=== PATIENT | female | born 1940 | race Caucasian/White ===

== ENCOUNTER → 2018-07-16 12:34 | Outpatient (CLI) | payer MEDICARE, OTHER, SELFPAY ==
[2018-07-16 13:51] LABS: Alanine Aminotransferase 34 IU/L (9-52); Albumin 3.9 g/dL (3.5-5.0); Albumin Globulin Ratio 1.4 (1.0-2.8); Alkaline Phosphatase 73 U/L (38-126); Aspartate Aminotransferase 23 IU/L (14-36); BUN Creatinine Ratio 21.3 (6-22); Bilirubin Total 0.6 mg/dL (0.2-1.3); Blood Urea Nitrogen 17 mg/dL (7-17); Calcium 9.7 mg/dL (8.4-10.2); Carbon Dioxide 28 mmol/L (22-32); Chloride 103 mmol/L (98-107); Cholesterol 174 mg/dL (140-199); Creatinine Urine Random 108.5 mg/dL; Estimated Glomerular Filt Rate > 60.0 mL/min (>60); Globulin 2.8 g/dL (1.7-4.1); Glucose 215 mg/dL (80-110); HDL Cholesterol 64 mg/dL (40-60); HEMOLYSIS < 15 (0-50); LDL Cholesterol Calculated 65 mg/dL (<100); Potassium 4.1 mmol/L (3.4-5.1); Sodium 141 mmol/L (137-145); Total Protein 6.7 g/dL (6.3-8.2); Triglycerides 224 mg/dL (35-150)
[2018-07-16 13:55] LABS: Microalbumi Creatinin Ratio Ur 8.2 ug/mg CR (<30); Microalbumin Urine Random 0.9 mg/dL (0-1.6)
== END ==
PROVIDERS: PCP Student in an Organized Health Care Education/Training Program; Visit Provider Student in an Organized Health Care Education/Training Program
DX: I10 Essential (primary) hypertension (principal); E78.00 Pure hypercholesterolemia, unspecified
CPT/HCPCS: 36415; 80053; 80061; 82043; 82570

== ENCOUNTER → 2018-07-30 12:32 | Outpatient (CLI) | payer MEDICARE, OTHER, SELFPAY | PROVIDERS: Family Provider Internal Medicine Hematology & Oncology; PCP Student in an Organized Health Care Education/Training Program; Visit Provider Surgery | DX: C50.911 Malignant neoplasm of unspecified site of right female breast (principal); Z78.0 Asymptomatic menopausal state | CPT/HCPCS: 77080 ==

== ENCOUNTER → 2018-08-22 13:10 | Outpatient (CLI) | payer MEDICARE, OTHER, SELFPAY ==
--- NOTE | 2018-08-22 13:12 | DI.MG.S_ITS ---
UNILATERAL RIGHT DIGITAL DIAGNOSTIC MAMMOGRAM 3D/2D SHORT-TERM FOLLOW-UP POST LUMPECTOMY: 08/22/2018 CLINICAL: Patient returns for a 6 month follow up of the right breast. Comparison is made to exams dated: 02/13/2018 localization, 01/10/2018 mammogram, 12/27/2017 mammogram, and 12/13/2017 mammogram - [facility]. The tissue of right breast is heterogeneously dense. This may lower the sensitivity of mammography. No significant masses, calcifications, or other findings are seen in the breast. IMPRESSION: NEGATIVE There is no mammographic evidence of malignancy. Return to screening mammogram in 6 months is recommended. The patient will be due for her bilateral mammogram at that time. This exam was interpreted at Station ID: [id number]. NOTE: For mammograms, a report in lay terms will be sent to the patient. Approximately 15% of breast malignancies will not be visualized mammographically. In the management of a palpable breast mass, a negative mammogram must not discourage biopsy of a clinically suspicious lesion. Electronically Signed By: Mandi Fernando M.D. lk/:08/22/2018 13:45:45 copy to: KARAN MENARD letter sent: Normal Exam ACR BI-RADS Category 1: Negative [id number]
== END ==
PROVIDERS: Family Provider Internal Medicine Hematology & Oncology; PCP Student in an Organized Health Care Education/Training Program; Visit Provider Surgery
DX: R92.8 Other abnormal and inconclusive findings on diagnostic imaging of breast (principal); C50.919 Malignant neoplasm of unspecified site of unspecified female breast
CPT/HCPCS: 77065; G0279

== ENCOUNTER 2018-08-24 14:00 | Oncology outpatient (ONC) | payer MEDICARE, OTHER, SELFPAY ==
[2018-07-02 15:50] VITALS: BP 146/76; PULSE 74; RESP 17; TEMP 36.7; O2SAT 98
--- NOTE | 2018-07-02 16:18 | ONC.PN ---
PN -Subjective Interval history: INTERIM EVENTS She presents here today for scheduled follow-up visit. She overall has tolerated the aromatase inhibitor Arimidex relatively well. Patient reported hot flashes, but it is mild and tolerable. Patient reports no new onset musculoskeletal pain. Patient also denies any osteoarthritic pain. Patient admitted to not taking calcium and vitamin-D. Patient has already scheduled follow-up mammogram on July 30, 2018. ONCOLOGICAL HISTORY This is a 78-year-old female presented for her usual annual mammogram in early 2017 and was found to have an abnormality in the upper outer quadrant of the right breast. On January 10, 2018, patient underwent right breast mass needle core biopsies. 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 On February 13 2018, Dr. Bone partner performed right breast lumpectomy at sentinel lymph node biopsy. 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 Eleven lymph nodes were removed and 1 of them was positive for micrometastasis. Final pathology staging was pT1c pN1mi (AJCC 8). Post operatively, patient was evaluated by Dr. Arreguin. The role of Oncotype DX was discussed with the patient. However patient was not interested in proceeding to adjuvant chemotherapy; therefore Oncotype DX was not pursued. In addition patient also refused adjuvant radiotherapy. Since February of 2018, patient has been on Arimidex inhibitor Arimidex 1 mg once a day. - Patient Self-Reported Symptoms SR Constitution: Night Sweats SR ears, nose, mouth, throat issues: Ears ringing SR Musculoskeletal issues: Bone pain (fell after tripped while moving furniture. right lower back pain.) SR Endocrine issues: Hot flashes - Additional ROS All systems PM: reviewed and no additional remarkable complaints except as stated Home Medications and Allergies Home Medications Medication Instructions Recorded Confirmed Type atorvastatin [Lipitor] 20 mg PO QDAY #0 02/02/18 07/02/18 History lisinopril 10 mg PO QDAY #0 02/02/18 07/02/18 History metformin [Glucophage XR] 1,125 mg PO SEE INSTRUCTIONS #0 02/02/18 05/31/18 History anastrozole 1 mg PO DAILY 07/02/18 07/02/18 History lutein 20 mg PO DAILY 07/02/18 07/02/18 History vitamin P37-uaorb acid 1 tab PO DAILY 07/02/18 07/02/18 History Allergies Allergy/AdvReac Type Severity Reaction Status Date / Time gabapentin [GABAPENTIN] Allergy Severe hives Verified 07/02/18 15:53 Penicillins [PENICILLINS] Allergy Severe throat Verified 07/02/18 15:53 sweelling, rash prednisone [PREDNISONE] Allergy Severe heart Verified 07/02/18 15:53 racing, chest pain erythromycin base Allergy Unknown throat Verified 07/02/18 15:53 [ERYTHROMYCIN BASE] swelling, rash Sulfa (Sulfonamide Allergy Unknown throat Verified 07/02/18 15:53 Antibiotics) swelling, [SULFA (SULFONAMIDE rash ANTIBIOTICS)] Exam Vital signs: Last Vital Signs Temp 98.0 F 07/02/18 15:50 Pulse 74 07/02/18 15:50 Resp 17 07/02/18 15:50 BP 146/76 H 07/02/18 15:50 Pulse Ox 98 07/02/18 15:50 - Constitutional positive no acute distress, positive obese, positive cooperative - Routine HEENT Exam Head: Present: normocephalic, atraumatic Eye: Present: EOMI, PERRL, normal accommodation. Absent: conjunctival icterus ENT: Present: mucous membranes moist - Routine Neck Exam Present: supple, full ROM, trachea midline. Absent: JVD, carotid bruit, lymphadenopathy, thyromegaly, swelling - Detailed Breast Exam left Inspection: Absent: rash, erythema, swelling, peau d'orange, nipple discharge, area of retraction, discharge Palpation: Present: tenderness. Absent: mass, induration right Inspection: Absent: rash, erythema, swelling, peau d'orange, nipple discharge, area of retraction, discharge Palpation: Present: tenderness, induration. Absent: mass Comments: underneath the surgical wound. - Routine Respiratory Exam Present: Clear to auscultation bilaterally. Absent: wheezes - Routine Cardiovascular Exam Present: RRR, S1, S2. Absent: murmur, gallop, rubs - Routine Abdominal Exam Present: soft, normoactive bowel sounds. Absent: tenderness, distended, organomegaly, mass, hernia - Routine Extremities Exam Absent: cyanosis, edema, joint swelling - Routine Neurological Exam Present: alert, oriented X3, CN II-XII intact, normal tone, normal speech. Absent: sensory deficit, motor deficit - Routine Psychiatric Exam Present: normal affect, normal thought process, cooperative, good insight, good judgment - Additional findings Additional findings: All physical examinations were chaperoned. Results - Labs No results from today to review. Assessment and Plan (1) Breast cancer in female Current visit: Yes Status: Chronic I discussed the role of aromatase inhibitor in hormone receptor positive breast cancer. However it does carry a risk of worsening osteoporosis with increased risk for fracture. I would recommend that she take calcium and vitamin-D. The elementary calcium should be at least 1169-8611 mg per day with concurrent intake of vitamin D 800 to a 1000 units. PLAN: 1. Continue Anastrozole 1 mg daily 2. Calcium 1200 mg daily together with Vitamin D 800 units daily 3. DEXA scan 4. Mamogram as scheduled (07/30/2018) 5. RTC after mammogram
--- NOTE | 2018-08-24 13:52 | ONC.PN ---
PN -Subjective Interval history: Chief Complaint 78 year old with right breast cancer now on treatment with Arimidex here for scheduled follow up visit. Oncological History This is a 78-year-old female presented for her usual annual mammogram in early 2017 and was found to have an abnormality in the upper outer quadrant of the right breast. On January 10, 2018, patient underwent right breast mass needle core biopsies. The biopsy from 10 o'clock lesion showed invasive ductal carcinoma, [place] grade 2/3, with greatest linear extent of 3 mm, without ductal carcinoma in-situ, without microcalcification, without lymphovascular invasion, ER pos (95% average intensity staining), CA neg, and HER2 neg (1+); while the biopsy from the 9 o'clock location showed dense fibrous breast tissue with fibroadenomatoid changes and negative for in-situ or invasive carcinoma. On February 13 2018, Dr. Mc Owens performed right breast lumpectomy and sentinel lymph node biopsy. 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 Eleven lymph nodes were removed and 1 of them was positive for micrometastasis. Final pathology staging was pT1c pN1mi (AJCC 8). Post operatively, patient was evaluated by Dr. Arreguin. The role of Oncotype Dx was discussed with the patient. However patient was not interested in proceeding to adjuvant chemotherapy; therefore Oncotype DX was not pursued. In addition patient also refused adjuvant radiotherapy. Since February of 2018, patient has been on aromatase inhibitor Arimidex 1 mg once a day. Interim Events The patient now is taking Arimidex 1 mg once a day. Patient tolerated the medications extremely well. However patient said she is having problems tolerating vitamin-D. At some point, patient was having urinary tract infection-like symptoms. She was evaluated by her primary care provider, no urinary tract infection was identified based on the lab results according to patient. Patient herself then decided to stop vitamin-D. After she stopped vitamin-D, the symptoms resolved. Later she tried to use the vitamin-D again, and the urinary tract infection-like symptoms recurred. Therefore she decided that she will permanently stop vitamin-D. Now she is taking calcium 1 pill twice a day. I believe the calcium also contains low-dose vitamin D. Patient underwent mammogram on August 22, 2018. The diagnostic mammogram showed no abnormal findings. And returning to annual screening mammogram was recommended in 6 months. In addition patient also underwent a DEXA scan on July 30, 2018. The lowest T-score was found at the right femoral neck, and it was -0.8. The patient was considered normal according to the World Health Organization. - Patient Self-Reported Symptoms SR Constitution: Night Sweats SR ears, nose, mouth, throat issues: Ears ringing SR Musculoskeletal issues: Bone pain (fell after tripped while moving furniture. right lower back pain.) SR Endocrine issues: Hot flashes - Additional ROS All systems PM: reviewed and no additional remarkable complaints except as stated Home Medications and Allergies Home Medications Medication Instructions Recorded Confirmed Type atorvastatin [Lipitor] 20 mg PO QDAY #0 02/02/18 08/24/18 History lisinopril 10 mg PO QDAY #0 02/02/18 08/24/18 History metformin [Glucophage XR] 1,125 mg PO SEE INSTRUCTIONS #0 02/02/18 08/24/18 History anastrozole 1 mg PO DAILY 07/02/18 08/24/18 History lutein 20 mg PO DAILY 07/02/18 08/24/18 History vitamin F47-vhcrs acid 1 tab PO DAILY 07/02/18 08/24/18 History calcium carbonate [Calcium 600] 600 mg PO BID 08/24/18 08/24/18 History Allergies Allergy/AdvReac Type Severity Reaction Status Date / Time gabapentin [GABAPENTIN] Allergy Severe hives Verified 07/02/18 15:53 Penicillins [PENICILLINS] Allergy Severe throat Verified 07/02/18 15:53 sweelling, rash prednisone [PREDNISONE] Allergy Severe heart Verified 07/02/18 15:53 racing, chest pain erythromycin base Allergy Unknown throat Verified 07/02/18 15:53 [ERYTHROMYCIN BASE] swelling, rash Sulfa (Sulfonamide Allergy Unknown throat Verified 07/02/18 15:53 Antibiotics) swelling, [SULFA (SULFONAMIDE rash ANTIBIOTICS)] Exam Vital signs: Temp 98.0 F 07/02/18 15:50 Pulse 74 07/02/18 15:50 Resp 17 07/02/18 15:50 BP 146/76 H 07/02/18 15:50 Pulse Ox 98 07/02/18 15:50 ECOG 1 Narrative: Constitutional: positive no acute distress, positive obese, positive cooperative HEENT: Head: Present: normocephalic, atraumatic, Eye: Present: EOMI, PERRL, normal accommodation. Absent: conjunctival icterus ENT: Present: mucous membranes moist Neck Present: supple, full ROM, trachea midline. Absent: JVD, carotid bruit, lymphadenopathy, thyromegaly, swelling Breast Deferred. Respiratory: Present: Clear to auscultation bilaterally. Absent: wheezes Cardiovascular: Present: RRR, S1, S2. Absent: murmur, gallop, rubs Abdominal: Present: soft, normoactive bowel sounds. Absent: tenderness, distended, organomegaly, mass, hernia Extremities: Absent: cyanosis, edema, joint swelling Neurological: Present: alert, oriented X3, CN II-XII intact, normal tone, normal speech. Absent: sensory deficit, motor deficit Psychiatric: Present: normal affect, normal thought process, cooperative, good insight, good judgment Results - Labs Mammogram and DEXA were reviewed with patient and her Assessment and Plan (1) Breast cancer in female I reviewed the mammogram as well as the DEXA scan results with the patient. The mammogram is without any abnormal findings. And the DEXA scan is normal. Plan: 1. Continue Anastrozole 1 mg daily 2. Calcium 1200 mg daily together with Vitamin D 800 units daily 3. Bilateral screening mammogram in 6 months 4. RTC after mammogram
[2018-08-24 14:31] VITALS: BP 145/74; PULSE 81; RESP 17; TEMP 36.6; O2SAT 98
== END 2018-08-25 12:00 ==
PROVIDERS: Family Provider Surgery; PCP Student in an Organized Health Care Education/Training Program; Visit Provider Internal Medicine Hematology & Oncology
DX: C50.411 Malignant neoplasm of upper-outer quadrant of right female breast (principal); Z17.0 Estrogen receptor positive status [ER+]; Z79.811 Long term (current) use of aromatase inhibitors
CPT/HCPCS: 99214

== ENCOUNTER → 2018-10-09 09:02 | Outpatient (CLI) | payer MEDICARE, OTHER, SELFPAY ==
[2018-10-09 09:52] LABS: Add Manual Diff / Slide Review NO; Basophils Percent Auto 0.7 % (0-2); Eosinophils Percent Auto 1.4 % (2-4); Hematocrit 42.8 % (36-46); Hemoglobin 14.2 g/dL (12.0-16.0); Mean Corpuscular HGB Conc 33.1 % (30-36); Mean Corpuscular Hemoglobin 30.8 PG (26-34); Mean Corpuscular Volume 92.9 fL (80-100); Monocytes Percent Auto 5.2 % (3-14); Neutrophils Absolute Auto 4800 /uL (1500-7000); Neutrophils Percent Auto 70.7 % (50-75); Platelet Count 208 X10^3/uL (150-400); Red Blood Cell Count 4.61 X10^6/uL (4.0-5.2); Red Cell Distribution Width 13.2 % (11.6-14.8); White Blood Cell Count 6.7 X10^3/uL (4.5-11.0)
[2018-10-09 10:38] LABS: Creatinine Urine Random 65.7 mg/dL
[2018-10-09 10:43] LABS: Microalbumi Creatinin Ratio Ur 9.1 ug/mg CR (<30); Microalbumin Urine Random 0.6 mg/dL (0-1.6)
[2018-10-09 11:37] LABS: BUN Creatinine Ratio 21.3 (6-22); Blood Urea Nitrogen 17 mg/dL (7-17); Carbon Dioxide 24 mmol/L (22-32); Chloride 104 mmol/L (98-107); Cholesterol 181 mg/dL (140-199); Estimated Glomerular Filt Rate > 60.0 mL/min (>60); Glucose 112 mg/dL (80-110); HDL Cholesterol 65 mg/dL (40-60); LDL Cholesterol Calculated 82 mg/dL (<100); Sodium 142 mmol/L (137-145); Triglycerides 171 mg/dL (35-150)
[2018-10-09 11:48] LABS: HEMOLYSIS 130 (0-50); Potassium 5.4 mmol/L (3.4-5.1)
== END ==
PROVIDERS: PCP Student in an Organized Health Care Education/Training Program; Visit Provider Student in an Organized Health Care Education/Training Program
DX: I10 Essential (primary) hypertension (principal); E11.40 Type 2 diabetes mellitus with diabetic neuropathy, unspecified; E78.00 Pure hypercholesterolemia, unspecified
CPT/HCPCS: 36415; 80048; 80061; 82043; 82570; 83036; 85025

== ENCOUNTER → 2018-10-15 11:30 | Outpatient (CLI) | payer MEDICARE, OTHER, SELFPAY ==
--- NOTE | 2018-10-15 | DI.RAD.S_ITS ---
PROCEDURE: XR CHEST 2V INDICATIONS: COUGH TECHNIQUE: 2 views of the chest were acquired. COMPARISON: None. FINDINGS: Surgical changes and devices: Right breast clips are seen. Lungs and pleura: Poorly defined opacities are seen involving the lung bases, right worse than left. No pneumothorax or pleural effusions are seen. Mediastinum: Mediastinal contours are normal. Heart size is normal. Bones and chest wall: No suspicious bony abnormalities. Age-appropriate bony degenerative changes are seen. Soft tissues appear unremarkable. IMPRESSION: Poorly defined opacities are seen at the lung bases. Differential diagnosis includes infiltrate and atelectasis. As clinically appropriate, a short-term followup chest series (with PA and lateral views) performed in deep inspiration is suggested for further evaluation. Dictated by: Jarad Link M.D. on 10/15/2018 at 11:06 Approved by: Jarad Link M.D. on 10/15/2018 at 11:07
== END ==
PROVIDERS: Family Provider Surgery; PCP Student in an Organized Health Care Education/Training Program; Visit Provider Student in an Organized Health Care Education/Training Program
DX: R05 Cough (principal)
CPT/HCPCS: 71046

== ENCOUNTER → 2019-01-11 09:31 | Outpatient (CLI) | payer MEDICARE, OTHER, SELFPAY ==
--- NOTE | 2019-02-25 09:12 | ONC.SCHED ---
Tawana said [facility] Radiologist said her Mammo was normal, She doesnt want to schedule a follow up at this time
== END ==
PROVIDERS: PCP Student in an Organized Health Care Education/Training Program; Visit Provider Student in an Organized Health Care Education/Training Program
DX: E11.40 Type 2 diabetes mellitus with diabetic neuropathy, unspecified (principal)
CPT/HCPCS: 36415; 83036

== ENCOUNTER → 2019-02-19 10:53 | Outpatient (CLI) | payer MEDICARE, OTHER, SELFPAY ==
--- NOTE | 2019-02-19 10:55 | DI.MG.S_ITS ---
BILATERAL DIGITAL SCREENING MAMMOGRAM 3D/2D WITH CAD POST LUMPECTOMY: 02/19/2019 CLINICAL: Routine screening. Personal history of right breast cancer. Comparison is made to exams dated: 08/22/2018 mammogram, 01/10/2018 mammogram, 12/27/2017 mammogram, 12/13/2017 mammogram, and 10/31/2016 mammogram - [facility]. The tissue of both breasts is heterogeneously dense. This may lower the sensitivity of mammography. Current study was also evaluated with a Computer Aided Detection (CAD) system. There are benign post operative findings in the right breast. There also are benign calcifications in both breasts. No significant masses, calcifications, or other findings are seen in either breast. There has been no significant interval change. IMPRESSION: There is no mammographic evidence of malignancy. A 1 year screening mammogram is recommended. This exam was interpreted at Station ID: [id number]. NOTE: For mammograms, a report in lay terms will be sent to the patient. Approximately 15% of breast malignancies will not be visualized mammographically. In the management of a palpable breast mass, a negative mammogram must not discourage biopsy of a clinically suspicious lesion. Electronically Signed By: Godwin reid/valerio:02/19/2019 13:15:15 copy to: KARAN MENARD copy to: Clari Romero letter sent: Normal Exam ACR BI-RADS Category 2: Benign Finding(s) [id number]
== END ==
PROVIDERS: PCP Student in an Organized Health Care Education/Training Program; Visit Provider Surgery
DX: Z12.31 Encounter for screening mammogram for malignant neoplasm of breast (principal); Z85.3 Personal history of malignant neoplasm of breast
CPT/HCPCS: 77063; 77067

== ENCOUNTER → 2019-07-29 14:16 | Outpatient (CLI) | payer MEDICARE, OTHER, SELFPAY ==
--- NOTE | 2019-07-29 | DI.RAD.S_ITS ---
PROCEDURE: XR WRIST LT MIN 3V INDICATIONS: LEFT WRIST PAIN TECHNIQUE: 4 views of the wrist were acquired. COMPARISON: None. FINDINGS: Bones: No fractures or dislocations. No suspicious bony lesions. First CMC and triscaphe joint degeneration. Chondrocalcinosis projects in the ulnocarpal compartment IMPRESSION: Mild degenerative changes. If the patient's pain or other symptoms persist, consider further evaluation with MRI Dictated by: Brayan Polanco M.D. on 07/29/2019 at 16:52 Approved by: Brayan Polanco M.D. on 07/29/2019 at 16:57
== END ==
PROVIDERS: PCP Student in an Organized Health Care Education/Training Program; Visit Provider Student in an Organized Health Care Education/Training Program
DX: M25.532 Pain in left wrist (principal); M18.12 Unilateral primary osteoarthritis of first carpometacarpal joint, left hand
CPT/HCPCS: 73110

== ENCOUNTER → 2019-10-09 08:51 | Outpatient (CLI) | payer MEDICARE, OTHER, SELFPAY ==
[2019-10-09 10:23] LABS: Blood Urea Nitrogen 21 mg/dL (7-17); Calcium 10.1 mg/dL (8.4-10.2); Carbon Dioxide 28 mmol/L (22-32); Chloride 103 mmol/L (98-107); Estimated Glomerular Filt Rate 53.8 mL/min (>60); Glucose 155 mg/dL (80-110); HEMOLYSIS < 15 (0-50); Potassium 4.1 mmol/L (3.4-5.1); Sodium 141 mmol/L (137-145)
[2019-10-09 10:49] LABS: Hemoglobin A1C% w Est Avg Glu 7.6 % (4.0-6.0)
[2019-10-09 12:23] LABS: Creatinine Urine Random 72.5 mg/dL
[2019-10-09 12:29] LABS: Microalbumi Creatinin Ratio Ur 8.2 ug/mg CR (<30); Microalbumin Urine Random 0.6 mg/dL (0-1.6)
== END ==
PROVIDERS: Family Provider Internal Medicine Hematology & Oncology; PCP Student in an Organized Health Care Education/Training Program; Visit Provider Student in an Organized Health Care Education/Training Program
DX: E11.40 Type 2 diabetes mellitus with diabetic neuropathy, unspecified (principal); I10 Essential (primary) hypertension; E78.00 Pure hypercholesterolemia, unspecified
CPT/HCPCS: 36415; 80048; 82043; 82570; 83036

== ENCOUNTER → 2019-10-21 12:52 | Outpatient (CLI) | payer MEDICARE, OTHER, SELFPAY ==
--- NOTE | 2019-10-21 12:55 | DI.US.S_ITS ---
LIMITED ULTRASOUND OF RIGHT BREAST: 10/21/2019 CLINICAL: Palpable right breast lump. Focal right breast pain. Comparison is made to exams dated: 10/21/2019 mammogram, 02/19/2019 mammogram, 08/22/2018 mammogram, 01/10/2018 mammogram, 12/27/2017 mammogram, and 12/27/2017 [facility]. Color flow ultrasound of the right breast upper outer quadrant was performed. Munguia scale images of the real-time examination were reviewed. Targeted ultrasound of the superior lateral left breast at the site of patient's reported focal palpable lump (near the 9:00 position) and focal pain (near the 10:00 position) demonstrates postsurgical changes and scarring consistent with reported prior lumpectomy, with no significant vascularity on Doppler ultrasound or well-formed distinct focal masses to suggest recurrent malignancy at this time. No other masses or abnormalities are identified by ultrasound within the superior lateral right breast. IMPRESSION: BENIGN 1) Targeted ultrasound of the superior lateral left breast at the site of patient's reported focal palpable lump and focal pain demonstrates postsurgical changes and scarring consistent with reported prior lumpectomy, with no ultrasound findings to suggest a recurrent malignancy at this time. No other masses or abnormalities are identified by ultrasound within the superior lateral right breast. Recommend clinical follow-up for further evaluation and management of the patient's reported symptoms. Consider breast MRI if there is continued clinical suspicion for recurrent or residual malignancy. 2) There is no sonographic evidence of malignancy in the imaged areas of the superior lateral right breast. Recommend to post-lumpectomy follow-up mammogram schedule with next bilateral mammogram due in January 2020. The patient is advised to monitor her breasts and to return sooner for re-evaluation should she feel anything grow or change. This exam was interpreted at Station ID: [id number]. Electronically Signed By: Heriberto Martínez M.D. ecl/:10/21/2019 14:47:00 letter sent: Clinical Evaluation Ultrasound BI-RADS: 2 Benign
--- NOTE | 2019-10-21 12:55 | DI.MG.S_ITS ---
UNILATERAL RIGHT DIGITAL DIAGNOSTIC MAMMOGRAM 3D/2D POST LUMPECTOMY: 10/21/2019 CLINICAL: Focal right breast pain and focal right breast palpable lump. Comparison is made to exams dated: 02/19/2019 mammogram, 08/22/2018 mammogram, 02/13/2018 localization, 01/10/2018 mammogram, 12/13/2017 mammogram, and 10/31/2016 mammogram - [facility]. The tissue of right breast is heterogeneously dense. This may lower the sensitivity of mammography. There is a triangular marker overlying the skin of the superior lateral right breast at the site of the patient's reported palpable lump. There is also a square marker overlying the skin of the superior lateral right breast at the site of the patient's reported focal pain. Both markers are adjacent the area of parenchymal scarring of the superior lateral right breast from middle to posterior depth from the patient's prior lumpectomy site. There is an overlying linear scar marker. There are underlying surgical clips. There are franklin-like secretory calcifications and peripher calcifications suggestive of fat necrosis within the right breast. IMPRESSION: INCOMPLETE: NEEDS ADDITIONAL IMAGING EVALUATION Patient's indicated area of focal pain and area of palpable lump within the the superior lateral right breast are both adjacent the area of parenchymal scarring from patient's prior lumpectomy. Targeted diagnostic ultrasound recommended for further evaluation, which will be performed immediately following this exam. This exam was interpreted at Station ID: [id number]. NOTE: For mammograms, a report in lay terms will be sent to the patient. Approximately 15% of breast malignancies will not be visualized mammographically. In the management of a palpable breast mass, a negative mammogram must not discourage biopsy of a clinically suspicious lesion. Electronically Signed By: Heriberto Martínez M.D. ecl/:10/21/2019 14:16:38 ACR BI-RADS Category 0: Incomplete [id number]
== END ==
PROVIDERS: Family Provider Internal Medicine Hematology & Oncology; PCP Student in an Organized Health Care Education/Training Program; Visit Provider Internal Medicine Hematology & Oncology
DX: R92.8 Other abnormal and inconclusive findings on diagnostic imaging of breast (principal); N63.10 Unspecified lump in the right breast, unspecified quadrant; N64.4 Mastodynia; L90.5 Scar conditions and fibrosis of skin; Z85.3 Personal history of malignant neoplasm of breast
CPT/HCPCS: 76642; 77065; G0279

== ENCOUNTER → 2020-04-23 11:08 | Outpatient (CLI) | payer MEDICARE, OTHER, SELFPAY ==
[2020-04-23 12:03] LABS: Bacteria Urine None Seen; RBC Urine None Seen (0-5/HPF); WBC Urine None Seen (0-5/HPF)
[2020-04-23 12:42] LABS: Appearance Urine UA CLEAR; Bilirubin Urine UA NEGATIVE (NEGATIVE); Color Urine UA YELLOW; Glucose Urine UA 1+ g/dL (Negative); Ketones Urine UA NEGATIVE (NEGATIVE); Leukocyte Esterase Urine UA NEGATIVE (NEGATIVE); Nitrite Urine UA NEGATIVE (Negative); Occult Blood Urine UA NEGATIVE (Negative); Protein Urine UA NEGATIVE (Negative); Specific Gravity Urine UA 1.025 (1.000-1.035); Urobilinogen Urine UA 0.2 E.U./dL (0.2)
[2020-04-23 13:09] LABS: Calcium Oxalate Crystals Urine Many
== END ==
PROVIDERS: Family Provider Internal Medicine Hematology & Oncology; PCP Student in an Organized Health Care Education/Training Program; Referring Provider Student in an Organized Health Care Education/Training Program; Visit Provider Student in an Organized Health Care Education/Training Program
DX: N39.0 Urinary tract infection, site not specified (principal)
CPT/HCPCS: 81001; 87086

== ENCOUNTER 2020-04-26 05:24 | Emergency (ER) | payer MEDICARE, OTHER, SELFPAY ==
[2020-04-26 05:44] VITALS: BP 254/114; PULSE 94; RESP 16; TEMP 36.4; O2SAT 98
--- NOTE | 2020-04-26 06:01 | ED_ITS ---
HPI - Skin/Abscess/Foreign Bdy General Chief complaint: Skin/Abscess/Foreign Body Stated complaint: right side pain, has shingles Time Seen by Provider: 04/26/20 05:53 Source: patient Mode of arrival: Ambulatory Limitations: no limitations History of Present Illness HPI narrative: 79-year-old female. Diagnosed with a shingles approximately 1 week ago to her right upper leg. She has finished the course of antivirals. Was not given any pain medication. She states that for the past week she has had quite a bit of pain in the area where the rash has been. She does feel that the rash has been improving with the pain has not. She states it is very itchy. Painful with moving. She has been sitting most of the time for the past several days. She states that last evening she could not sleep and could not ta ke it anymore so that is why she came into the emergency department for evaluation. Related Data Home Medications Medication Instructions Recorded Confirmed atorvastatin [Lipitor] 20 mg PO QDAY #0 02/02/18 04/18/20 lisinopril 10 mg PO QDAY #0 02/02/18 04/18/20 metformin [Glucophage XR] 1,125 mg PO SEE INSTRUCTIONS #0 02/02/18 04/18/20 lutein 20 mg PO DAILY 07/02/18 04/18/20 vitamin [id number] acid 1 tab PO DAILY 07/02/18 04/18/20 calcium carbonate [Calcium 600] 600 mg PO BID 08/24/18 04/18/20 Previous Rx's Medication Instructions Recorded hydrocodone-acetaminophen [[place]] 1 tab PO Q4-6H PRN #14 tab 04/26/20 Allergies Allergy/AdvReac Type Severity Reaction Status Date / Time gabapentin [GABAPENTIN] Allergy Severe hives Verified 04/18/20 15:38 Penicillins [PENICILLINS] Allergy Severe throat Verified 04/18/20 15:38 sweelling, rash prednisone [PREDNISONE] Allergy Severe heart Verified 04/18/20 15:38 racing, chest pain erythromycin base Allergy Unknown throat Verified 04/18/20 15:38 [ERYTHROMYCIN BASE] swelling, rash Sulfa (Sulfonamide Allergy Unknown throat Verified 04/18/20 15:38 Antibiotics) swelling, [SULFA (SULFONAMIDE rash ANTIBIOTICS)] Review of Systems Constitutional Constitutional: Denies fatigue, Denies fever(s) and Denies headache(s) ENT Ears, Nose, Mouth, and Throat: Denies headache(s) Cardiovascular Cardiovascular: Denies chest pain Respiratory Respiratory: Denies cough Gastrointestinal Gastrointestinal: Denies abdominal pain Integumentary/Breasts Skin/Breast: Reports pruritus, Reports lesions and Reports rash Neurologic Neurologic: Denies behavioral changes and Denies headache(s) Psychiatric Psychiatric: Denies behavioral changes Endocrine Endocrine: Denies fatigue Hematologic/Lymphatic Hematologic/Lymphatic: Denies easy bleeding and Denies easy bruising Patient History Medical History Breast cancer, right (Acute) Diabetic neuropathy (Acute) 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) Hypercholesterolemia (Acute) Hypertension (Acute) Lymph node staging category pN0(I+) (Acute) Type 2 diabetes mellitus (Acute) Surgical History History of cholecystectomy (Acute) History of hysterectomy (Acute) Status post right breast lumpectomy (Acute) Social History Smoking Status: Never smoker Smoking Status: Never smoker Exam Initial Vital Signs Initial Vital Signs: Vital Signs Temperature 97.6 F 04/26/20 05:44 Pulse Rate 94 H 04/26/20 05:44 Respiratory Rate 16 04/26/20 05:44 Blood Pressure 254/114 H 04/26/20 05:44 Pulse Oximetry 98 04/26/20 05:44 Const General: cooperative Limitations: mental status not altered HENSD Head: normal to inspection and normocephalic Resp Effort & Inspection: normal respiratory effort Cardio Rate: regular rate Skin Other: Patient with rash located right upper buttocks extending around to the right upper thigh. Rash consistent with zoster. Is only 1 vesicle located on the posterior aspect. Otherwise rash is dry. Neuro Cognition: normal cognition Speech: speech normal Extrem General: capillary refill normal Psych Appearance: grossly normal and well kempt Course Orders Ordered: Discontinued Medications Hydrocodone Bitart/Acetaminophen ([place] 5/325) 1 tab PO NOW ONE Stop: 04/26/20 06:03 Last Admin: 04/26/20 06:08 Dose: 1 tab Documented by: PARVIN Hydrocodone Bitart/Acetaminophen (Vicodin 5/325 Prepack) 1 bottle MISC SEEINSTR ONE Stop: 04/26/20 06:38 Vital Signs Vital signs: Vital Signs - 8 hr 04/26/20 05:44 04/26/20 06:27 Temperature 97.6 F Pulse Rate 94 H 90 Respiratory Rate 16 18 Blood Pressure 254/114 H 219/91 H Pulse Oximetry 98 97 MDM - Skin/Abscess/Foreign Bdy MDM Narrative Medical decision making narrative: Patient's rash is consistent with zoster. It appears to be healing well. There is only 1 blister that can be identified. Does not look like there is eye supra infection. Patient was given pain medication. She has completed a course of antivirals. We did discuss zoster. We did discuss the potential for post herpetic neuralgia. I informed her that she should talk with her primary doctor about whether not she needs to be on long-term medications for this. Patient was also hypertensive. This is most likely secondary to her discomfort in the anxiety about being here. She has not taken her morning dose of lisinopril. She does have a blood pressure cuff at home. She does not appear to have any secondary complications from the hypertension. Feel we can hold on further workup for this. Will have her take her blood pressure at home and also contact her primary provider for follow-up. She expressed understanding and agreement plan. Discharge Plan Departure Patient Disposition: Home Clinical Impression: Shingles Qualifiers: Herpes zoster complications: without complications Qualified Code(s): B02.9 - Zoster without complications Hypertension Qualifiers: Hypertension type: unspecified Qualified Code(s): I10 - Essential (primary) hypertension Instructions: Shingles (Herpes Zoster) (Alternative Therapy), Essential Hypertension Activity Restrictions/Additional Instructions: It is important that you continue all of your medications as directed. I also recommend that you take your blood pressure at home like we discussed. Tomorrow contact your primary providers office for a follow-up to discuss both your elevated blood pressure and also the shingles pain that you are having. Take the medication as directed. Return to the emergency department for any new or worsening symptoms. Also recommend that you start taking a stool softener such as Colace. You can purchase this medication [id number]. Prescriptions: New hydrocodone-acetaminophen [[place]] 5-325 mg tablet 1 tab PO Q4-6H PRN (Reason: pain) Qty: 14 RF: 0 No Action atorvastatin [Lipitor] 20 MG tablet 20 mg PO QDAY Qty: 0 RF: 0 lisinopril 20 MG tablet 10 mg PO QDAY Qty: 0 RF: 0 metformin [Glucophage XR] 750 MG tablet extended release 24 hr 1,125 mg PO SEE INSTRUCTIONS Qty: 0 RF: 0 vitamin [id number] acid 500-400 mcg Tablet 1 tab PO DAILY RF: 0 lutein 20 mg Tablet 20 mg PO DAILY RF: 0 calcium carbonate [Calcium 600] 600 mg calcium (1,500 mg) Tablet 600 mg PO BID RF: 0 Referrals: Kanika Ham PA-C [Primary Care Provider] -
[2020-04-26] MEDS: HYDROCODONE/ACET 5/325 TABLET 1 TAB PO (06:08)
[2020-04-26 06:27] VITALS: BP 219/91; PULSE 90; RESP 18; O2SAT 97
[2020-04-26] MEDS: HYDROCODONE/ACET 5/325 PREPACK 1 BOTTLE MISC (06:51)
== END 2020-04-26 07:02 | disposition home or self-care (01) ==
PROVIDERS: Emergency Provider Emergency Medicine; Family Provider Internal Medicine Hematology & Oncology; PCP Student in an Organized Health Care Education/Training Program
DX: B02.9 Zoster without complications (principal); I10 Essential (primary) hypertension
CPT/HCPCS: 99282; 99283

== ENCOUNTER 2020-05-11 10:09 | Emergency (ER) | payer MEDICARE, OTHER, SELFPAY ==
[2020-05-11] VITALS (16 sets, daily range): BP systolic 140–218; BP diastolic 55–95; PULSE 90–110; RESP 16–42; O2SAT 94–99
--- NOTE | 2020-05-11 10:29 | DI.RAD.S_ITS ---
PROCEDURE: XR CHEST 2V INDICATIONS: shortness of breath TECHNIQUE: 2 views of the chest were acquired. COMPARISON: [facility], CR, XR CHEST 2V, 10/15/2018, 11:32. FINDINGS: Surgical changes and devices: None. Lungs and pleura: Lungs are clear. No pleural effusions or pneumothorax. Mediastinum: Mediastinal contours are normal. Heart size is normal. Bones and chest wall: No suspicious bony abnormalities. Soft tissues appear unremarkable. IMPRESSION: Normal for age, source of current shortness of breath symptoms is not seen. Dictated by: Tato Colon M.D. on 05/11/2020 at 11:39 Approved by: Tato Colon M.D. on 05/11/2020 at 11:39
--- NOTE | 2020-05-11 10:37 | ED_ITS ---
HPI - SOB/Dyspnea General Chief Complaint: Shortness of Breath/Dyspnea Stated Complaint: Trouble breathing Time Seen by Provider: 05/11/20 10:35 Source: patient Mode of arrival: Ambulatory Limitations: no limitations History of Present Illness HPI Narrative: The patient developed shortness of breath about 30 minutes prior to arrival. She indicates she has multiple drug allergies. She tells me she is allergic to cheese. She had dried cereal with almond milk for breakfast. She is diabetic, she was recently started on glipizide, about 2 days ago. She recently had shingles on her right buttocks and her right anterior thigh, the rash is resolved. She still has neuralgia. She took hydrocodone last night for the pain. She developed dyspnea with anxiety days prior to arrival. She has no chest pain with the dyspnea. She denies recent illness. She has had no cough. She has had no fever. She has not traveled, she has no exposure suggestive of COVID-19. She is nonsmoker. She has no history of asthma or CHF. From home glucose monitoring, her last glucose level was in the 100s range. Related Data Home Medications Medication Instructions Recorded Confirmed atorvastatin [Lipitor] 20 mg PO QDAY #0 02/02/18 04/18/20 lisinopril 10 mg PO QDAY #0 02/02/18 04/18/20 metformin [Glucophage XR] 1,125 mg PO SEE INSTRUCTIONS #0 02/02/18 04/18/20 lutein 20 mg PO DAILY 07/02/18 04/18/20 vitamin [id number] acid 1 tab PO DAILY 07/02/18 04/18/20 calcium carbonate [Calcium 600] 600 mg PO BID 08/24/18 04/18/20 Previous Rx's Medication Instructions Recorded hydrocodone-acetaminophen [[place]] 1 tab PO Q4-6H PRN #14 tab 04/26/20 Allergies Allergy/AdvReac Type Severity Reaction Status Date / Time gabapentin [GABAPENTIN] Allergy Severe hives Verified 05/11/20 10:42 Penicillins [PENICILLINS] Allergy Severe throat Verified 05/11/20 10:42 sweelling, rash prednisone [PREDNISONE] Allergy Severe heart Verified 05/11/20 10:42 racing, chest pain erythromycin base Allergy Unknown throat Verified 05/11/20 10:42 [ERYTHROMYCIN BASE] swelling, rash Sulfa (Sulfonamide Allergy Unknown throat Verified 05/11/20 10:42 Antibiotics) swelling, [SULFA (SULFONAMIDE rash ANTIBIOTICS)] Review of Systems Review of Systems ROS Unobtainable: All systems reviewed & are unremarkable except as noted in HPI and below Constitutional Constitutional: Denies chills, Denies fever(s), Denies lethargy and Denies weakness Eyes Eyes: Denies blurry vision, Denies eye discharge and Denies irritation ENT Ears, Nose, Mouth, and Throat: Denies vertigo, Denies dizziness, Denies sore throat and Denies throat swelling Cardiovascular Cardiovascular: Denies chest pain, Denies irregular heart rhythm, Denies lightheadedness, Denies palpitations, Reports dyspnea and Denies orthopnea Respiratory Respiratory: Denies cough, Reports dyspnea and Denies wheezing Gastrointestinal Gastrointestinal: Denies abdominal pain, Denies change in bowel habits, Denies diarrhea, Denies nausea and Denies vomiting Genitourinary Genitourinary: Denies dysuria Genitourinary: Denies dysuria Musculoskeletal Musculoskeletal: Denies back pain and Denies arthralgias Integumentary/Breasts Comments: Erythema to the face and neck. 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) Hypercholesterolemia (Acute) Hypertension (Acute) Lymph node staging category pN0(I+) (Acute) Type 2 diabetes mellitus (Acute) Surgical History History of cholecystectomy (Acute) History of hysterectomy (Acute) Status post right breast lumpectomy (Acute) Social History Smoking Status: Never smoker Smoking Status: Never smoker Exam Initial Vital Signs Initial Vital Signs: Vital Signs Pulse Rate 110 H 05/11/20 10:15 Respiratory Rate 42 H 05/11/20 10:15 Blood Pressure 218/95 H 05/11/20 10:15 Pulse Oximetry 99 05/11/20 10:15 Const General: cooperative, well developed, in distress and anxious Nutritional Appearance: well nourished [facility] Head: other (Erythema to the cheeks, chin and anterior neck) Mouth: oral mucosae normal Throat: posterior oropharynx normal (No edema or erythema) Eyes General: appearance normal, both eyes and all related structures Eyelids: eyelids normal Conjunctivae: conjunctivae normal Sclera: sclerae normal Pupils: PERRL EOM: EOM intact bilaterally Chest Chest: normal inspection of the chest Resp Effort & Inspection: normal respiratory effort, able to speak in complete sentences, no respiratory distress and no use of accessory muscles Auscultation: clear to auscultation bilaterally, no rales, no rhonchi and no wheezes Cardio Rate: regular rate Rhythm: regular rhythm Heart Sounds: S1 normal, S2 normal, no click, no gallops, no murmurs and no rubs Pulses: normal peripheral pulses GI Palpation: soft and No tender Percussion: normal to percussion Back/Spine/Pelvis Back: normal to inspection Skin Other: Facial or neck her theme, no other rash. Neuro General: patient alert, patient oriented x3, gait normal and no focal motor deficits Speech: speech normal Extrem General: full ROM, no pedal edema and no calf tenderness Psych Appearance: well kempt Mental Status: other (Anxiety.) Speech and Movement: speech and movement normal Mood: other (Anxiety.) Course Course Course Narrative: The patient was given IV Benadryl. Erythema has resolved. Airway and lungs remain clear. She did have an elevated lactic acid, lactic acid level has improved significantly with hydration, no other intervention. She has no other suggestion of sepsis. She is discharged home with directions for an allergic reaction, possibly glipizide. She has had food this morning she is used to, she is on hydrocodone, he is taking his previously. She has had glipizide for the last 2-3 days only. She is advised follow-up with her doctor for diabetes care. Orders Ordered: ED Orders 05/11/20 10:29 XR chest 2V Stat EKG-12 Lead Stat Measure peak expiratory flow ONCE RT Consult Eval and Treat Now 05/11/20 11:20 Complete Blood Count AUTO DIFF Stat Comprehensive Metabolic Panel Stat Lactate (Lactic Acid) Stat NT-proBNP (BNP-Adult 18+) Stat Troponin & CK Cardiac Panel Stat 05/11/20 12:53 Blood Culture Stat Discontinued Medications Diphenhydramine HCl (Benadryl) 50 mg IV NOW ONE Stop: 05/11/20 10:31 Last Admin: 05/11/20 10:40 Dose: 50 mg Documented by: XAVIER Diphenhydramine HCl (Benadryl) 50 mg IV NOW ONE Stop: 05/11/20 10:37 Last Admin: 05/11/20 12:36 Dose: Not Given Documented by: SABAS Sodium Chloride (Normal Saline 0.9%) 1,000 mls @ 1,000 mls/hr IV BOLUS ONE Stop: 05/11/20 13:28 Last Infusion: 05/11/20 14:53 Dose: 0 mls/hr Documented by: Admin: 05/11/20 12:36 Dose: 1,000 mls/hr Documented by: SABAS Sodium Chloride (Normal Saline 0.9%) 1,000 mls @ 1,000 mls/hr IV BOLUS ONE Stop: 05/11/20 15:46 Last Admin: 05/11/20 15:01 Dose: 1,000 mls/hr Documented by: XAVIER Vital Signs Vital signs: Vital Signs - 8 hr 05/11/20 10:15 05/11/20 10:30 05/11/20 10:40 Pulse Rate 110 H 92 H 90 Respiratory Rate 42 H 42 H 27 H Blood Pressure 218/95 H 177/55 H 169/75 H Pulse Oximetry 99 99 95 05/11/20 11:01 05/11/20 11:30 05/11/20 11:40 Pulse Rate 98 H 97 H 97 H Respiratory Rate 25 H 23 Blood Pressure 159/74 H 145/68 H Pulse Oximetry 97 95 05/11/20 11:50 05/11/20 12:00 05/11/20 12:10 Pulse Rate 97 H 94 H 93 H Respiratory Rate 32 H 20 17 Blood Pressure 146/65 H 145/70 H 154/74 H Pulse Oximetry 97 94 95 05/11/20 12:20 05/11/20 12:30 05/11/20 12:40 Pulse Rate 93 H 96 H 91 H Respiratory Rate 18 20 17 Blood Pressure 159/72 H 155/74 H 149/72 H Pulse Oximetry 95 95 96 05/11/20 13:30 05/11/20 13:40 05/11/20 13:51 Pulse Rate 101 H 90 93 H Respiratory Rate 39 H 26 H 33 H Blood Pressure 140/76 140/76 179/92 H Pulse Oximetry 96 96 97 MDM - SOB/Dyspnea Lab Data Result diagrams: 05/11/20 11:20 05/11/20 11:20 Labs: Lab Results 05/11/20 05/11/20 05/11/20 Range/Units 10:22 11:20 11:20 WBC 6.2 (4.5-11.0) X10^3/uL RBC 4.29 (4.0-5.2) X10^6/uL Hgb 13.4 (12.0-16.0) g/dL Hct 40.3 (36-46) % MCV 93.9 (80-100) fL MCH 31.2 (26-34) PG MCHC 33.3 (30-36) % RDW 13.8 (11.6-14.8) % Plt Count 222 (150-400) X10^3/uL Neut % (Auto) 68.5 (50-75) % Lymph % (Auto) 24.6 L (25-40) % [place] % (Auto) 5.3 (3-14) % Eos % (Auto) 1.2 L (2-4) % Baso % (Auto) 0.4 (0-2) % Neut # (Auto) 4200 (6020-3345) /uL Lymph # (Auto) 1500 (1681-9905) /uL [place] # (Auto) 300 (0-900) /uL Eos # (Auto) 100 (0-450) /uL Baso # (Auto) 0 (0-100) /uL Sodium 139 (137-145) mmol/L Potassium 4.1 (3.4-5.1) mmol/L Chloride 106 (98-107) mmol/L Carbon Dioxide 20 L (22-32) mmol/L BUN 18 H (7-17) mg/dL Creatinine 0.91 (0.52-1.04) mg/dL Estimated GFR 59.9 L (>60) mL/min BUN/Creatinine Ratio 19.8 (6-22) Glucose 166 H (80-110) mg/dL Lactate (0.7-2.1) mmol/L Calcium 10.2 (8.4-10.2) mg/dL Total Bilirubin 0.5 (0.2-1.3) mg/dL AST 34 (14-36) IU/L ALT 34 (<35) IU/L Alkaline Phosphatase 88 (38-126) U/L Total Creatine Kinase (30-135) U/L CK-MB (CK-2) CK-MB (CK-2) Rel Index Troponin I (0.01-0.034) ng/mL NT-Pro-B Natriuret Pep (<450) pg/mL Total Protein 7.5 (6.3-8.2) g/dL Albumin 4.3 (3.5-5.0) g/dL Globulin 3.2 (1.7-4.1) g/dL Albumin/Globulin Ratio 1.3 (1.0-2.8) COVID-19 PCR Negative (Negative) 05/11/20 05/11/20 05/11/20 Range/Units 11:20 11:20 14:27 WBC (4.5-11.0) X10^3/uL RBC (4.0-5.2) X10^6/uL Hgb (12.0-16.0) g/dL Hct (36-46) % MCV (80-100) fL MCH (26-34) PG MCHC (30-36) % RDW (11.6-14.8) % Plt Count (150-400) X10^3/uL Neut % (Auto) (50-75) % Lymph % (Auto) (25-40) % [place] % (Auto) (3-14) % Eos % (Auto) (2-4) % Baso % (Auto) (0-2) % Neut # (Auto) (1819-2226) /uL Lymph # (Auto) (8462-7036) /uL [place] # (Auto) (0-900) /uL Eos # (Auto) (0-450) /uL Baso # (Auto) (0-100) /uL Sodium (137-145) mmol/L Potassium (3.4-5.1) mmol/L Chloride (98-107) mmol/L Carbon Dioxide (22-32) mmol/L BUN (7-17) mg/dL Creatinine (0.52-1.04) mg/dL Estimated GFR (>60) mL/min BUN/Creatinine Ratio (6-22) Glucose (80-110) mg/dL Lactate 4.5 H* 3.3 H (0.7-2.1) mmol/L Calcium (8.4-10.2) mg/dL Total Bilirubin (0.2-1.3) mg/dL AST (14-36) IU/L ALT (<35) IU/L Alkaline Phosphatase (38-126) U/L Total Creatine Kinase 49 (30-135) U/L CK-MB (CK-2) TNP CK-MB (CK-2) Rel Index TNP Troponin I < 0.012 (0.01-0.034) ng/mL NT-Pro-B Natriuret Pep 64 (<450) pg/mL Total Protein (6.3-8.2) g/dL Albumin (3.5-5.0) g/dL Globulin (1.7-4.1) g/dL Albumin/Globulin Ratio (1.0-2.8) COVID-19 PCR (Negative) Point of Care Testing Glucose POC 309 Urine Dip Bedside Urine Glucose Negative Bedside Urine Bilirubin - Negative Bedside Urine Ketone - Negative Urine Specific [place] 1.020 Bedside Urine Occult Blood - Negative Bedside Urine pH 6.0 Bedside Urine Protein - Negative Bedside Urine Urobilinogen - Negative Bedside Urine Nitrite - Negative Bedside Urine Leukocytes - Negative Esterase Imaging Data Chest x-ray: Radiologist's Impression: No acute changes. ECG Data Attestation: I personally reviewed and interpreted this ECG as follows: (Normal sinus rhythm rate 92 beats per minute. Normal intervals. No ectopy. No acute ST T wave changes. Normal study.) Discharge Plan Departure Patient Disposition: Home Clinical Impression: Allergic drug reaction Qualifiers: Encounter type: initial encounter Qualified Code(s): T78.40XA - Allergy, unspecified, initial encounter Instructions: DI for Adverse Drug Reaction -- Allergic Activity Restrictions/Additional Instructions: Avoid glipizide. Take Benadryl 1 tab every 4 hours if you have return of the rash. Return to the ER if you have difficulty breathing. Contact your doctor tomorrow for follow-up on diabetes management. Prescriptions: No Action atorvastatin [Lipitor] 20 MG tablet 20 mg PO QDAY Qty: 0 RF: 0 lisinopril 20 MG tablet 10 mg PO QDAY Qty: 0 RF: 0 metformin [Glucophage XR] 750 MG tablet extended release 24 hr 1,125 mg PO SEE INSTRUCTIONS Qty: 0 RF: 0 hydrocodone-acetaminophen [[place]] 5-325 mg tablet 1 tab PO Q4-6H PRN (Reason: pain) Qty: 14 RF: 0 vitamin G11-[id number] acid 500-400 mcg Tablet 1 tab PO DAILY RF: 0 lutein 20 mg Tablet 20 mg PO DAILY RF: 0 calcium carbonate [Calcium 600] 600 mg calcium (1,500 mg) Tablet 600 mg PO BID RF: 0 Referrals: Kanika Ham PA-C [Primary Care Provider] -
[2020-05-11] MEDS: diphenhydrAMINE 50 MG/ML VIAL IV (10:40)
[2020-05-11 11:24] LABS: Add Manual Diff / Slide Review NO; Basophils Absolute Auto 0 /uL (0-100); Basophils Percent Auto 0.4 % (0-2); Eosinophils Absolute Auto 100 /uL (0-450); Eosinophils Percent Auto 1.2 % (2-4); Hematocrit 40.3 % (36-46); Hemoglobin 13.4 g/dL (12.0-16.0); Lymphocytes Absolute Auto 1500 /uL (1100-4500); Lymphocytes Percent Auto 24.6 % (25-40); Mean Corpuscular HGB Conc 33.3 % (30-36); Mean Corpuscular Hemoglobin 31.2 PG (26-34); Mean Corpuscular Volume 93.9 fL (80-100); Monocytes Absolute Auto 300 /uL (0-900); Monocytes Percent Auto 5.3 % (3-14); Neutrophils Absolute Auto 4200 /uL (1500-7000); Neutrophils Percent Auto 68.5 % (50-75); Platelet Count 222 X10^3/uL (150-400); Red Blood Cell Count 4.29 X10^6/uL (4.0-5.2); Red Cell Distribution Width 13.8 % (11.6-14.8); White Blood Cell Count 6.2 X10^3/uL (4.5-11.0)
[2020-05-11 11:30] LABS: COVID19 -Nasal RAPID Negative (Negative)
[2020-05-11 11:34] LABS: Alanine Aminotransferase 34 IU/L (<35); Albumin 4.3 g/dL (3.5-5.0); Albumin Globulin Ratio 1.3 (1.0-2.8); Alkaline Phosphatase 88 U/L (38-126); Aspartate Aminotransferase 34 IU/L (14-36); BUN Creatinine Ratio 19.8 (6-22); Bilirubin Total 0.5 mg/dL (0.2-1.3); Blood Urea Nitrogen 18 mg/dL (7-17); Calcium 10.2 mg/dL (8.4-10.2); Carbon Dioxide 20 mmol/L (22-32); Chloride 106 mmol/L (98-107); Creatine Kinase 49 U/L (30-135); Estimated Glomerular Filt Rate 59.9 mL/min (>60); Globulin 3.2 g/dL (1.7-4.1); Glucose 166 mg/dL (80-110); HEMOLYSIS < 15 (0-50); Potassium 4.1 mmol/L (3.4-5.1); Sodium 139 mmol/L (137-145); Total Protein 7.5 g/dL (6.3-8.2)
[2020-05-11 11:40] LABS: Lactate (Lactic Acid) 4.5 mmol/L (0.7-2.1)
[2020-05-11 11:47] LABS: NT-proBNP (BNP-Adult 18+) 64 pg/mL (<450); Troponin I < 0.012 ng/mL (0.01-0.034)
[2020-05-11] MEDS: SODIUM CHLORIDE 0.9% 1,000 ML 1000 ML IV ×2 (12:36→15:01)
[2020-05-11 13:22] LABS: Reflexed Lactate in 2 Hours Y
[2020-05-11 14:45] LABS: Lactate 2HR (Lactic Acid Rflx) 3.3 mmol/L (0.7-2.1)
== END 2020-05-11 16:10 | disposition home or self-care (01) ==
PROVIDERS: Emergency Provider Emergency Medicine; Family Provider Internal Medicine Hematology & Oncology; PCP Student in an Organized Health Care Education/Training Program
DX: T78.40XA Allergy, unspecified, initial encounter (principal); T78.07XA Anaphylactic reaction due to milk and dairy products, initial encounter; R21 Rash and other nonspecific skin eruption; E11.9 Type 2 diabetes mellitus without complications; F41.9 Anxiety disorder, unspecified
CPT/HCPCS: 36415; 71046; 80053; 81003; 82550; 82962; 83605; 83880; 84484; 85025; 87040; 87635; 93005; 96361; 96374; 99284; J1200

== ENCOUNTER → 2020-05-18 15:42 | Outpatient (CLI) | payer MEDICARE, OTHER, SELFPAY ==
--- NOTE | 2020-05-18 | DI.MG.S_ITS ---
BILATERAL DIGITAL SCREENING MAMMOGRAM 3D/2D WITH CAD: 05/18/2020 CLINICAL: Routine screening. Personal history of right breast cancer. Comparison is made to exams dated: 10/21/2019 mammogram, 02/19/2019 mammogram, and 08/22/2018 mammogram - [facility]. The tissue of both breasts is heterogeneously dense. This may lower the sensitivity of mammography. Current study was also evaluated with a Computer Aided Detection (CAD) system. There are benign calcifications in both breasts. There also are benign post operative findings in the right breast. No significant masses, calcifications, or other findings are seen in either breast. There has been no significant interval change. IMPRESSION: There is no mammographic evidence of malignancy. A 1 year screening mammogram is recommended. This exam was interpreted at Station ID: [id number]. NOTE: For mammograms, a report in lay terms will be sent to the patient. Approximately 15% of breast malignancies will not be visualized mammographically. In the management of a palpable breast mass, a negative mammogram must not discourage biopsy of a clinically suspicious lesion. Electronically Signed By: Margaret richter/valerio:05/18/2020 16:58:56 letter sent: Normal Exam ACR BI-RADS Category 2: Benign Finding(s) 3342F
== END ==
PROVIDERS: Family Provider Internal Medicine Hematology & Oncology; PCP Student in an Organized Health Care Education/Training Program; Referring Provider Student in an Organized Health Care Education/Training Program; Visit Provider Student in an Organized Health Care Education/Training Program
DX: Z12.31 Encounter for screening mammogram for malignant neoplasm of breast (principal); Z85.3 Personal history of malignant neoplasm of breast
CPT/HCPCS: 77063; 77067

== ENCOUNTER → 2020-07-13 10:55 | Outpatient (CLI) | payer MEDICARE, OTHER, SELFPAY ==
[2020-07-13 11:57] LABS: Add Manual Diff / Slide Review NO; Basophils Absolute Auto 100 /uL (0-100); Basophils Percent Auto 0.9 % (0-2); Eosinophils Absolute Auto 300 /uL (0-450); Eosinophils Percent Auto 4.4 % (2-4); Hematocrit 41.3 % (36-46); Lymphocytes Absolute Auto 1900 /uL (1100-4500); Lymphocytes Percent Auto 28.9 % (25-40); Mean Corpuscular HGB Conc 33.9 % (30-36); Mean Corpuscular Hemoglobin 31.7 PG (26-34); Mean Corpuscular Volume 93.7 fL (80-100); Monocytes Absolute Auto 400 /uL (0-900); Monocytes Percent Auto 5.5 % (3-14); Neutrophils Absolute Auto 3900 /uL (1500-7000); Neutrophils Percent Auto 60.3 % (50-75); Platelet Count 231 X10^3/uL (150-400); Red Blood Cell Count 4.41 X10^6/uL (4.0-5.2); Red Cell Distribution Width 13.5 % (11.6-14.8); White Blood Cell Count 6.5 X10^3/uL (4.5-11.0)
[2020-07-13 12:00] LABS: Hemoglobin A1C% w Est Avg Glu 7.4 % (4.0-6.0)
[2020-07-13 13:43] LABS: Alanine Aminotransferase 37 IU/L (<35); Albumin 4.6 g/dL (3.5-5.0); Albumin Globulin Ratio 1.4 (1.0-2.8); Alkaline Phosphatase 92 U/L (38-126); Aspartate Aminotransferase 38 IU/L (14-36); Blood Urea Nitrogen 17 mg/dL (7-17); Calcium 10.1 mg/dL (8.4-10.2); Carbon Dioxide 24 mmol/L (22-32); Chloride 104 mmol/L (98-107); Cholesterol 179 mg/dL (140-199); Estimated Glomerular Filt Rate 53.6 mL/min (>60); Globulin 3.3 g/dL (1.7-4.1); Glucose 108 mg/dL (80-110); HDL Cholesterol 64 mg/dL (40-60); HEMOLYSIS < 15 (0-50); LDL Cholesterol Calculated 78 mg/dL (<100); Potassium 4.8 mmol/L (3.4-5.1); Sodium 139 mmol/L (137-145); Total Protein 7.9 g/dL (6.3-8.2); Triglycerides 187 mg/dL (35-150)
== END ==
PROVIDERS: Family Provider Internal Medicine Hematology & Oncology; PCP Student in an Organized Health Care Education/Training Program; Referring Provider Student in an Organized Health Care Education/Training Program; Visit Provider Student in an Organized Health Care Education/Training Program
DX: I10 Essential (primary) hypertension (principal); E78.00 Pure hypercholesterolemia, unspecified; E11.40 Type 2 diabetes mellitus with diabetic neuropathy, unspecified
CPT/HCPCS: 36415; 80053; 80061; 83036; 85025

== ENCOUNTER → 2020-07-20 14:00 | Oncology outpatient (ONC) | payer MEDICARE, OTHER, SELFPAY ==
--- NOTE | 2019-01-01 14:59 | ONC.APRN.PN ---
PN -Subjective Interval history: Patient presents to clinic today for same day urgent/acute visit. She called reporting increased joint pain times 1-1/2 months. She did asked to be seen today. Previous visit was August 24, [address] Cadet. At the outset of visit patient states ?I do not want to take this medicine any more?. She is holding a prescription profile her pharmacist provided to her regarding her anastrozole. She has highlighted the area noting reports of musculoskeletal pain. She thinks her pain is due to this medication. She states the pain comes and goes. She states aspirin has been helping. Sometimes she has no pain other times she reports her pain is as high as 9/10. She points specifically to her Right CMC joint, states this is where she has pain. She reports chronic pain in her shoulders and back but might be worse with this medicine. Pt goes on to report I cant take most medications, I have reactions to almost all medications including vitamins. Otherwise the pt states she is fine. No illnesses or hospitalizations since her previous visit. No cough, fever, chills. No headaches. No new lumps or bumps. She is scheduled for her routine annual bilateral screening mammogram February 19, 2019. Oncological History This is a 78-year-old female presented for her usual annual mammogram in early 2017 and was found to have an abnormality in the upper outer quadrant of the right breast. On January 10, 2018, patient underwent right breast mass needle core biopsies. 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 On February 13 2018, Dr. Mc Owens performed right breast lumpectomy and sentinel lymph node biopsy. 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 Eleven lymph nodes were removed and 1 of them was positive for micrometastasis. Final pathology staging was pT1c pN1mi (AJCC 8). Post operatively, patient was evaluated by Dr. Arreguin. The role of Oncotype Dx was discussed with the patient. However patient was not interested in proceeding to adjuvant chemotherapy; therefore Oncotype DX was not pursued. In addition patient also refused adjuvant radiotherapy. Since February of 2018, patient has been on aromatase inhibitor Arimidex 1 mg once a day. Interim Events The patient now is taking Arimidex 1 mg once a day. Patient tolerated the medications extremely well. However patient said she is having problems tolerating vitamin-D. At some point, patient was having urinary tract infection-like symptoms. She was evaluated by her primary care provider, no urinary tract infection was identified based on the lab results according to patient. Patient herself then decided to stop vitamin-D. After she stopped vitamin-D, the symptoms resolved. Later she tried to use the vitamin-D again, and the urinary tract infection-like symptoms recurred. Therefore she decided that she will permanently stop vitamin-D. Now she is taking calcium 1 pill twice a day. I believe the calcium also contains low-dose vitamin D. Patient underwent mammogram on August 22, 2018. The diagnostic mammogram showed no abnormal findings. And returning to annual screening mammogram was recommended in 6 months. In addition patient also underwent a DEXA scan on July 30, 2018. The lowest T-score was found at the right femoral neck, and it was -0.8. The patient was considered normal according to the World Health Organization. Home Medications and Allergies Home Medications Medication Instructions Recorded Confirmed Type atorvastatin [Lipitor] 20 mg PO QDAY #0 02/02/18 09/03/18 History lisinopril 10 mg PO QDAY #0 02/02/18 09/03/18 History metformin [Glucophage XR] 1,125 mg PO SEE INSTRUCTIONS #0 02/02/18 09/03/18 History anastrozole 1 mg PO DAILY 07/02/18 09/03/18 History lutein 20 mg PO DAILY 07/02/18 09/03/18 History vitamin B50-hxlus acid 1 tab PO DAILY 07/02/18 09/03/18 History calcium carbonate [Calcium 600] 600 mg PO BID 08/24/18 09/03/18 History Allergies Allergy/AdvReac Type Severity Reaction Status Date / Time gabapentin [GABAPENTIN] Allergy Severe hives Verified 07/02/18 15:53 Penicillins [PENICILLINS] Allergy Severe throat Verified 07/02/18 15:53 sweelling, rash prednisone [PREDNISONE] Allergy Severe heart Verified 07/02/18 15:53 racing, chest pain erythromycin base Allergy Unknown throat Verified 07/02/18 15:53 [ERYTHROMYCIN BASE] swelling, rash Sulfa (Sulfonamide Allergy Unknown throat Verified 07/02/18 15:53 Antibiotics) swelling, [SULFA (SULFONAMIDE rash ANTIBIOTICS)] Exam Vital signs: Intake and Output 12/31/18 01/01/19 01/01/19 23:59 07:59 15:59 Other: Weight 84 kg Patient Weight 01/02/19 07:59 Weight 84 kg - Constitutional positive no acute distress - Routine Neck Exam Present: supple. Absent: lymphadenopathy - Routine Respiratory Exam Present: Clear to auscultation bilaterally. Absent: rales, rhonchi, wheezes - Routine Cardiovascular Exam Present: RRR, S1, S2. Absent: murmur, gallop, rubs, JVD - Routine Extremities Exam Present: edema, tenderness. Absent: full ROM Comments: right CMC TTP with limited ROM, TTP - Routine Skin Exam Present: intact, normal turgor. Absent: rash - Routine Neurological Exam Present: alert, oriented X3 - Routine Psychiatric Exam Present: normal affect Assessment and Plan (1) Breast cancer in female Current visit: No Status: Chronic The patient is a 78-year-old female with right breast cancer who presents today for same day urgent visit reporting joint pain x1.5 months. She seems quite certain this is due to her anastrozole however I am not so certain. She has classic arthritis, presenting in her right CMC joint with inflammation as well as tenderness to palpation, limited range of motion. This pain is worse 1st thing in the morning tends to get better throughout the day. Aspirin has been helping. Patient is very reluctant to continue anastrozole. I reminded her it has been prescribed to reduce her risk of breast cancer recurrence. We discussed a plan today which includes a drug holiday thereby we can better determine if this is medication related or not. Hold anastrozole until her next visit which is the end of January 2019. Keep annual bilateral screening mammogram which is also scheduled for the end of January.
[2019-10-31 14:46] VITALS: BP 134/80; PULSE 72; RESP 18; TEMP 36.9; O2SAT 99
--- NOTE | 2019-10-31 15:00 | ONC.PN ---
PN -Subjective Interval history: Identification and Reason for the visit 79 year old female with right breast cancer Oncological History Tawana is a 79 -year-old female. In early 2017, her annual mammogram noted an abnormality in the upper outer quadrant of the right breast. On 01/10/2018, she underwent right breast mass needle core biopsies. 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 On February 13, 2018, Dr. Mc Owens performed right breast lumpectomy and sentinel lymph node biopsy. 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 Eleven lymph nodes were removed and 1 of them was positive for micrometastasis. Final pathology staging was pT1c pN1mi (AJCC 8). Post operatively, patient was evaluated by Dr. Arreguin. The role of Oncotype Dx was discussed with the patient. However patient was not interested in proceeding to adjuvant chemotherapy; therefore Oncotype DX was not pursued. In addition patient also refused adjuvant radiotherapy. Since February of 2018, patient has been on aromatase inhibitor Arimidex 1 mg once a day. But she had to stop 01/01/2019 due to worsening arthritis pain. Patient underwent DEXA scan on July 30, 2018. The lowest T-score was found at the right femoral neck, and it was -0.8. The patient was considered normal according to the World Health Organization. Interim Events: She has been doing well. She is currently not taking any endocrine therapy for risk reduction purpose. She presents today for more discussion. - Additional ROS All systems PM: reviewed and no additional remarkable complaints except as stated Home Medications and Allergies Home Medications Medication Instructions Recorded Confirmed Type atorvastatin [Lipitor] 20 mg PO QDAY #0 02/02/18 02/25/19 History lisinopril 10 mg PO QDAY #0 02/02/18 02/25/19 History metformin [Glucophage XR] 1,125 mg PO SEE INSTRUCTIONS #0 02/02/18 02/25/19 History lutein 20 mg PO DAILY 07/02/18 02/25/19 History vitamin [id number] acid 1 tab PO DAILY 07/02/18 02/25/19 History calcium carbonate [Calcium 600] 600 mg PO BID 08/24/18 02/25/19 History Allergies Allergy/AdvReac Type Severity Reaction Status Date / Time gabapentin [GABAPENTIN] Allergy Severe hives Verified 02/25/19 13:57 Penicillins [PENICILLINS] Allergy Severe throat Verified 02/25/19 13:57 sweelling, rash prednisone [PREDNISONE] Allergy Severe heart Verified 02/25/19 13:57 racing, chest pain erythromycin base Allergy Unknown throat Verified 02/25/19 13:57 [ERYTHROMYCIN BASE] swelling, rash Sulfa (Sulfonamide Allergy Unknown throat Verified 02/25/19 13:57 Antibiotics) swelling, [SULFA (SULFONAMIDE rash ANTIBIOTICS)] Exam Vital signs: Vital Signs Temp Pulse Resp BP Pulse Ox 10/31/19 14:46 98.4 F 72 18 134/80 99 Intake and Output 10/30/19 10/31/19 10/31/19 23:59 07:59 15:59 Other: Weight 86.8 kg Patient Weight 10/31/19 23:59 Weight 86.8 kg - Constitutional positive no acute distress, positive average body habitus, positive cooperative - Routine HEENT Exam Head: Present: normocephalic, atraumatic Eye: Present: EOMI, PERRL, normal accommodation. Absent: conjunctival icterus ENT: Present: mucous membranes moist - Routine Neck Exam Present: supple. Absent: lymphadenopathy, thyromegaly - Routine Chest/Breast/Axilla Exam Comments: Deferred. - Routine Respiratory Exam Present: Clear to auscultation bilaterally - Routine Cardiovascular Exam Present: RRR, S1, S2. Absent: murmur, gallop, rubs - Routine Abdominal Exam Present: soft, normoactive bowel sounds, tenderness, distended. Absent: drain - Routine Extremities Exam Absent: edema - Routine Neurological Exam Present: alert, oriented X3, CN II-XII intact. Absent: sensory deficit, motor deficit - Routine Psychiatric Exam Absent: normal affect Results - Labs Reviewed. Assessment and Plan (1) Breast cancer in female Overview: Tawana is a 79 -year-old female with right-sided ER+(95% average intensity staining), VA-, and HER2 neg (1+), breast IDC, diagnosed on 01/10/2018 after biopsy. She underwent right breast lumpectomy and sentinel lymph node biopsy on February 13, 2018. Final pathology staging was pT1c pN1mi (AJCC 8). Patient denied chemotherapy and radiation therapy. She received endocrine therapy anastrozole from 02/2018 to 12/2018 and stopped due to arthric joint point. Assessment: Today I tried to explain to the patient that arthritis is a common side effects for aromatace inhibitor. Usually I would recommend different aromatase inhibitor. However patient is very much adamant that she does not want to try any other aromatase inhibitor at this moment. She is afraid of the reactions. I talked with her that I will continue active surveillance. Her next mammogram will be in January based on our radiologist's recommendation. Plan: Mammogram in 01/2020 RTC after mammogram
--- NOTE | 2020-05-25 08:35 | PC.NURSE ---
Addendum entered by Gera Carney R.N. 05/26/20 09:03: Called pt and she said she would call the clinic when she is feeling better to schedule by the end of May. Pt reported they will be coming in for blood work in June and asked if she could get her blood work for her next appointment then. This nurse instructed the patient to call if anything changes in her health status. Pt verbalized understanding. Pt express reluctance for coming in since her last mammogram was normal, but agreed to contact the clinic to schedule for her f/u as soon as she is feeling better from pain r/t shingles nerve pain, pt did report that her scabs are all healed, but she is still experiencing pain at her nerve endings which she went to ER for in April and experienced an adverse rxn to glipizide and gabapentin. Making provider aware with this note. Original Note: Pt called to report they were unable to come in because of shingles. Pt is requesting to postpone f/u after mammogram, and when would be appropriate to come back and reschedule. Making the provider aware with this note.
--- NOTE | 2020-05-26 11:56 | ONC.SCHED ---
Per patient: shingles are preventing her from coming in at this time. She is now scheduled for 07/20 and I gave a note to Brayan to put lab orders in for 1 week prior.
[2020-07-20 14:43] VITALS: BP 135/82; PULSE 72; RESP 20; TEMP 36.9; O2SAT 98
--- NOTE | 2020-07-20 14:51 | P.PNONC_ITS ---
PN -Subjective Interval history: Identification and Reason for the visit 80 year old female with right breast cancer Oncological History Tawana is a 80 -year-old female. In early 2018, her annual mammogram noted an abnormality in the upper outer quadrant of the right breast. On 01/10/2018, she underwent right breast mass needle core biopsies. 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 On February 13, 2018, Dr. Mc Owens performed right breast lumpectomy and sentinel lymph node biopsy. 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 Eleven lymph nodes were removed and 1 of them was positive for micrometastasis. Final pathology staging was pT1c pN1mi (AJCC 8). Post operatively, patient was evaluated by Dr. Arreguin. The role of Oncotype Dx was discussed with the patient. However patient was not interested in proceeding to adjuvant chemotherapy; therefore Oncotype DX was not pursued. In addition patient also refused adjuvant radiotherapy. Since February of 2018, patient has been on aromatase inhibitor Arimidex 1 mg once a day. But she had to stop 01/01/2019 due to worsening arthritis pain. Patient underwent DEXA scan on July 30, 2018. The lowest T-score was found at the right femoral neck, and it was -0.8. The patient was considered normal according to the World Health Organization. Interim Events: She has been doing well. She is currently not taking any endocrine therapy for risk reduction purpose. She has also been followed by her primary care provider. She does not have any new signs or symptoms. She said she has been doing self examination and has not noticed any lumps and bumps in the breast bilaterally. - Additional ROS All systems PM: reviewed and no additional remarkable complaints except as stated Home Medications and Allergies Home Medications Medication Instructions Recorded Confirmed Type atorvastatin [Lipitor] 20 mg PO QDAY #0 02/02/18 07/20/20 History lisinopril 20 mg PO QDAY #0 02/02/18 04/18/20 History metformin [Glucophage XR] 1,000 mg PO BID #0 02/02/18 07/20/20 History lutein 20 mg PO DAILY 07/02/18 07/20/20 History Allergies Allergy/AdvReac Type Severity Reaction Status Date / Time gabapentin [GABAPENTIN] Allergy Severe hives Verified 05/11/20 10:42 Penicillins [PENICILLINS] Allergy Severe throat Verified 05/11/20 10:42 sweelling, rash prednisone [PREDNISONE] Allergy Severe heart Verified 05/11/20 10:42 racing, chest pain erythromycin base Allergy Unknown throat Verified 05/11/20 10:42 [ERYTHROMYCIN BASE] swelling, rash Sulfa (Sulfonamide Allergy Unknown throat Verified 05/11/20 10:42 Antibiotics) swelling, [SULFA (SULFONAMIDE rash ANTIBIOTICS)] Exam Vital signs: Vital Signs Temp Pulse Resp BP Pulse Ox 07/20/20 14:43 98.4 F 72 20 135/82 98 Intake and Output 07/19/20 07/20/20 07/20/20 23:59 07:59 15:59 Other: Weight 84.5 kg Patient Weight 07/20/20 23:59 Weight 84.5 kg - Constitutional positive no acute distress, positive obese, positive cooperative - Routine HEENT Exam Head: Present: normocephalic, atraumatic Eye: Present: EOMI, PERRL, normal accommodation. Absent: conjunctival icterus - Routine Respiratory Exam Absent: accessory muscle use - Routine Extremities Exam Absent: edema - Routine Neurological Exam Present: alert, oriented X3, CN II-XII intact. Absent: sensory deficit, motor deficit - Routine Psychiatric Exam Present: normal affect Results - Labs Reviewed from 07/13/2020 WBC 6.5, hemoglobin 14.0, hematocrit 41.3%, platelets 231, sodium 139, potassium 4.8, chloride 104, carbon dioxide 24, BUN 17, creatinine 1, glucose 108, calcium 10.1, total protein 7.9, albumin 4.6, globulin 3.3, triglyceride 187, HDL cholesterol 64, LDL cholesterol 78. Assessment and Plan (1) Breast cancer in female Overview: Tawana is a 80 -year-old female with right-sided ER+(95% average intensity staining), MT-, and HER2 neg (1+), breast IDC, diagnosed on 01/10/2018 after biopsy. She underwent right breast lumpectomy and sentinel lymph node biopsy on February 13, 2018. Final pathology staging was pT1c pN1mi (AJCC 8). Patient denied chemotherapy and radiation therapy. She received endocrine therapy anastrozole from 02/2018 to 12/2018 and stopped due to arthritic joint point. Assessment: Patient underwent mammogram on 05/18/2020. The mammogram showed no evidence of malignancy. A 1 year follow-up is recommended. Clinically patient does not have any worrisome signs or symptoms to suggest disease recurrence or metastasis. I will continue current active surveillance. I talked with the patient that her lab results indicated slightly elevated AST and ALT levels. patient said that she has follow-up appointment with her primary care provider in 3 months. Plan: Mammogram in 9 months Follow-up with her primary care provider. RTC in one year, CBC, CMP
== END ==
PROVIDERS: Family Provider Surgery; PCP Student in an Organized Health Care Education/Training Program; Visit Provider Nurse Practitioner Gerontology
DX: Z08 Encounter for follow-up examination after completed treatment for malignant neoplasm; Z85.3 Personal history of malignant neoplasm of breast
CPT/HCPCS: 99213; 99214

== ENCOUNTER → 2021-05-19 11:34 | Outpatient (CLI) | payer MEDICARE, SELFPAY ==
--- NOTE | 2021-05-19 | DI.MG.S_ITS ---
BILATERAL DIGITAL SCREENING MAMMOGRAM 3D/2D WITH CAD POST LUMPECTOMY: 05/19/2021 CLINICAL: Routine screening. Breast cancer. Comparison is made to exams dated: 05/18/2020 mammogram, 10/21/2019 mammogram, 02/19/2019 mammogram, and 08/22/2018 mammogram - [facility]. The tissue of both breasts is heterogeneously dense. This may lower the sensitivity of mammography. Current study was also evaluated with a Computer Aided Detection (CAD) system. There are benign calcifications in both breasts. There also are benign post operative findings in the right breast. No significant masses, calcifications, or other findings are seen in either breast. There has been no significant interval change. IMPRESSION: BENIGN There is no mammographic evidence of malignancy. A 1 year screening mammogram is recommended. This exam was interpreted at Station ID: [id number]. NOTE: For mammograms, a report in lay terms will be sent to the patient. Approximately 15% of breast malignancies will not be visualized mammographically. In the management of a palpable breast mass, a negative mammogram must not discourage biopsy of a clinically suspicious lesion. Electronically Signed By: Mir huston/valerio:05/19/2021 12:20:32 copy to: KARAN MENARD letter sent: Normal Exam ACR BI-RADS Category 2: Benign Finding(s) [id number]
== END ==
PROVIDERS: Family Provider Internal Medicine Hematology & Oncology; PCP Student in an Organized Health Care Education/Training Program; Referring Provider Student in an Organized Health Care Education/Training Program; Visit Provider Student in an Organized Health Care Education/Training Program
DX: Z12.31 Encounter for screening mammogram for malignant neoplasm of breast (principal); Z85.3 Personal history of malignant neoplasm of breast
CPT/HCPCS: 77063; 77067

== ENCOUNTER → 2021-09-06 10:57 | Outpatient (CLI) | payer MEDICARE, SELFPAY ==
--- NOTE | 2021-09-06 | DI.MRI.S_ITS ---
PROCEDURE: MR BRAIN (IAC) WWO CON INDICATIONS: Sensorineural hearing loss, bilateral TECHNIQUE: Noncontrast sagittal T1 spin echo, axial FLAIR, axial gradient echo, axial diffusion and ADC through the brain. Axial thin-slice 3D CISS, coronal TruFISP, axial T1 spin echo with fat saturation through the internal auditory canals. After the administration of contrast, thin slice axial and coronal T1 spin echo with fat saturation through the internal auditory canals, and axial T1 spin echo with fat saturation through the brain. COMPARISON: None. FINDINGS: Image quality: Excellent. Cerebellopontine angles: No cerebellopontine angle masses. Inner ear structures appear normally formed. No suspicious enhancement in the internal auditory canal or along the course of the 7th cranial nerve. CSF spaces: Ventricles are normal in size and shape. No extra-axial fluid collections. Basal cisterns are patent. Brain: No intracranial bleeds or mass effects. There is mild, diffuse cerebral volume loss. There are mild periventricular and subcortical white matter chronic microvascular ischemic changes. [place]-white matter interface is intact. No abnormal intracranial enhancement. Diffusion weighted images demonstrate no acute ischemic insults. Brainstem appears normal. Normal intravascular flow voids are present. Dural sinuses demonstrate normal postcontrast enhancement. Skull and face: Calvarial marrow signal is normal. Orbits appear normal. Sinuses: Sinuses and mastoids are clear. IMPRESSION: 1. No evidence of vestibular schwannoma. 2. No acute intracranial disease process. 3. No abnormal intracranial mass or mass effect. 4. No suspicious postcontrast enhancement. 5. Mild, diffuse cerebral volume loss. 6. Mild periventricular and subcortical white matter chronic microvascular ischemic change. Dictated by: Graciela Juan MD, PhD on 09/06/2021 at 12:47 Approved by: Graciela Juan MD, PhD on 09/06/2021 at 12:58
== END ==
PROVIDERS: Family Provider Internal Medicine Hematology & Oncology; PCP Student in an Organized Health Care Education/Training Program; Referring Provider Otolaryngology; Visit Provider Otolaryngology
DX: H90.3 Sensorineural hearing loss, bilateral (principal)
CPT/HCPCS: 70553

== ENCOUNTER → 2022-05-27 11:08 | Outpatient (CLI) | payer MEDICARE, SELFPAY ==
--- NOTE | 2022-05-27 11:10 | DI.MG.S_ITS ---
BILATERAL DIGITAL SCREENING MAMMOGRAM 3D/2D WITH CAD: 05/27/2022 CLINICAL: Routine screening. Personal history of right breast cancer. Comparison is made to exams dated: 05/19/2021 mammogram, 05/18/2020 mammogram, 10/21/2019 mammogram, 02/19/2019 mammogram, and 08/22/2018 mammogram - [facility]. The tissue of both breasts is heterogeneously dense. This may lower the sensitivity of mammography. Current study was also evaluated with a Computer Aided Detection (CAD) system. There are benign calcifications in both breasts. There also are benign post operative findings in the right breast. No significant masses, calcifications, or other findings are seen in either breast. There has been no significant interval change. IMPRESSION: BENIGN There is no mammographic evidence of malignancy. A 1 year screening mammogram is recommended. This exam was interpreted at Station ID: [id number]. NOTE: For mammograms, a report in lay terms will be sent to the patient. Approximately 15% of breast malignancies will not be visualized mammographically. In the management of a palpable breast mass, a negative mammogram must not discourage biopsy of a clinically suspicious lesion. Electronically Signed By: Mode [email or web address]:05/27/2022 14:13:44 copy to: KARAN MENARD letter sent: Normal Exam ACR BI-RADS Category 2: Benign Finding(s) 3342F
== END ==
PROVIDERS: Family Provider Internal Medicine Hematology & Oncology; PCP Student in an Organized Health Care Education/Training Program; Referring Provider Student in an Organized Health Care Education/Training Program; Visit Provider Student in an Organized Health Care Education/Training Program
DX: Z12.31 Encounter for screening mammogram for malignant neoplasm of breast (principal); Z85.3 Personal history of malignant neoplasm of breast
CPT/HCPCS: 77063; 77067

== ENCOUNTER → 2023-05-31 11:13 | Outpatient (CLI) | payer OTHER, SELFPAY ==
--- NOTE | 2023-05-31 | DI.MG.S_ITS ---
BILATERAL DIGITAL SCREENING MAMMOGRAM 3D/2D WITH CAD: 05/31/2023 CLINICAL: Routine screening. Personal history of right breast cancer. Comparison is made to exams dated: 05/27/2022 mammogram, 05/19/2021 mammogram, and 05/18/2020 mammogram - [facility]. Both breasts are heterogeneously dense, which may obscure small masses (category c / 51-75% glandular tissue). Current study was also evaluated with a Computer Aided Detection (CAD) system. There are benign calcifications in both breasts. There also are benign post operative findings in the right breast. No significant masses, calcifications, or other findings are seen in either breast. There has been no significant interval change. IMPRESSION: BENIGN There is no mammographic evidence of malignancy. A 1 year screening mammogram is recommended. This exam was interpreted at Station ID: [id number]. NOTE: For mammograms, a report in lay terms will be sent to the patient. Approximately 15% of breast malignancies will not be visualized mammographically. In the management of a palpable breast mass, a negative mammogram must not discourage biopsy of a clinically suspicious lesion. Electronically Signed By: Godwin reid/valerio:05/31/2023 18:21:15 copy to: KARAN MENARD letter sent: Normal Exam ACR BI-RADS Category 2: Benign Finding(s) 3342F
== END ==
PROVIDERS: Family Provider Internal Medicine Hematology & Oncology; PCP Student in an Organized Health Care Education/Training Program; Referring Provider Student in an Organized Health Care Education/Training Program; Visit Provider Student in an Organized Health Care Education/Training Program
DX: Z12.31 Encounter for screening mammogram for malignant neoplasm of breast (principal); Z85.3 Personal history of malignant neoplasm of breast
CPT/HCPCS: 77063; 77067

== ENCOUNTER → 2024-06-07 14:32 | Outpatient (CLI) | payer MEDICARE, SELFPAY ==
--- NOTE | 2024-06-07 14:34 | DI.MG.S_ITS ---
BILATERAL DIGITAL SCREENING MAMMOGRAM 3D/2D WITH CAD: 06/07/2024 CLINICAL: Routine screening. Personal history of right breast cancer. Comparison is made to exams dated: 05/31/2023 mammogram, 05/27/2022 mammogram, and 05/19/2021 mammogram - [facility]. Both breasts are heterogeneously dense, which may obscure small masses (category c / 51-75% glandular tissue). Current study was also evaluated with a Computer Aided Detection (CAD) system. There are benign calcifications in both breasts. There also are benign post operative findings in the right breast. No significant masses, calcifications, or other findings are seen in either breast. There has been no significant interval change. IMPRESSION: BENIGN There is no mammographic evidence of malignancy. A 1 year screening mammogram is recommended. This exam was interpreted at Station ID: [id number]. NOTE: For mammograms, a report in lay terms will be sent to the patient. Approximately 15% of breast malignancies will not be visualized mammographically. In the management of a palpable breast mass, a negative mammogram must not discourage biopsy of a clinically suspicious lesion. Electronically Signed By: Johnson [email or web address]:06/07/2024 16:30:26 copy to: KARAN MENARD letter sent: Normal Exam ACR BI-RADS Category 2: Benign Finding(s) 3342F
== END ==
PROVIDERS: Family Provider Internal Medicine Hematology & Oncology; PCP Internal Medicine; Referring Provider Internal Medicine; Visit Provider Internal Medicine
DX: Z12.31 Encounter for screening mammogram for malignant neoplasm of breast (principal); Z85.3 Personal history of malignant neoplasm of breast; R92.333 Mammographic heterogeneous density, bilateral breasts
CPT/HCPCS: 77063; 77067